=== PATIENT | female | born 1965 | race Caucasian/White ===

== ENCOUNTER 2018-08-22 13:16 | Emergency (ER) | END 2018-08-22 17:28 | disposition home or self-care (01) ==

== ENCOUNTER 2018-10-10 22:57 | Emergency (ER) | payer OTHER ==
[~2018-10-10] VITALS: Wt 86.4 kg
[~2018-10-10 22:57] MED LIST: IBUP-1542 PO; OLME1TAB29 PO
--- NOTE | 2018-10-11 00:30 | ERD ---
ER Documentation Chief Complaint Chief Complaint htn at home, c/o headache HPI 53-year-old woman presents with headache and elevated blood pressure, she has a long history of episodic hypertension but denies using medications regularly, she has no personal antihypertensive prescriptions but did use her 's lisinopril today prior to arrival. She denies chest pain or shortness of breath, no slurred speech, no weakness in her arms or legs, no difficulty ambulating. ROS All systems reviewed and are negative except as per history of present illness. Medications Home Meds Active Scripts Hydrochlorothiazide* (Hydrochlorothiazide*) 25 Mg Tab, 25 MG PO DAILY, #30 TAB Prov:CARLOTA BERKOWITZ MD 10/11/18 Naproxen* (Naprosyn*) 500 Mg Tablet, 500 MG PO BID PRN for PAIN AND/OR INFLAMMATION, #30 TAB Prov:CARLOTA BERKOWITZ MD 10/11/18 Ibuprofen* (Motrin*) 600 Mg Tab, 600 MG PO Q6H PRN for PAIN AND OR ELEVATED TEMP, #30 TAB Prov:HECTOR HOPPER MD 08/22/18 Reported Medications Aypiqxwbjz-Ewgdlbqlip-EQIJ (Tribenzor) 20-5-12.5 Mg Tablet, 1 TAB PO NEEDED, TAB THIS IS SOME ONE ELS MEDICATION 08/22/18 Allergies Allergies: Coded Allergies: No Known Allergy (Unverified , 08/22/18) PMhx/Soc Hypertension? History of Surgery: No Anesthesia Reaction: No Hx Neurological Disorder: No Hx Respiratory Disorders: No Hx Cardiac Disorders: Yes (HTN NON-COMPLIANT ) Hx Psychiatric Problems: No Hx Miscellaneous Medical Probl: No Hx Alcohol Use: Yes (occassionally/socially 08/21/18) Hx Substance Use: No Hx Tobacco Use: No FmHx Family History: No diabetes Physical Exam Vitals Vital Signs Date Temp Pulse Resp B/P (MAP) Pulse Ox O2 O2 Flow FiO2 Time Delivery Rate 10/11/18 98.1 74 16 170/91 97 Room Air 03:30 (117) 10/10/18 197/109 99 23:45 (138) 10/10/18 98.0 77 18 212/117 96 23:06 (148) Physical Exam GENERAL: Well-developed, well-nourished, well-hydrated, in no apparent distress, looks nontoxic in appearance HEENT: Moist mucous membranes, pink conjunctiva, no cervical spine tenderness or step-off deformities, no goiter, no jaundice or icterus, extraocular movements intact without pain. No submandibular induration, and no pharyngeal erythema NEURO: Alert and oriented 3, cranial nerves II through XII intact bilaterally, pupils equal round reactive to light, no focal deficits or facial asymmetry, sensation intact distally Strength 5/5 in upper and lower extremities bilaterally CARDIAC: Regular rate and rhythm, no murmurs rubs or gallops LUNGS: Clear bilaterally no wheezing crackles or stridor ABDOMEN: Soft nontender, no guarding, no rigidity, no rebound, no psoas sign no obturator sign. Normoactive bowel sounds SKIN: Warm and dry to touch, no abrasions, contusions, or hematomas, no lacerations, no ecchymosis, no target lesions, and without ulcers EXTREMITIES: No clubbing cyanosis or edema, calves are bilaterally symmetrical, no Homans sign, no popliteal cord sign. Distal pulses equal and bilateral PSYCH: Normal affect without agitation or irritability Result Diagram: 10/11/1815410/11/18 0155 Results 24 hrs Laboratory Tests Test 10/11/18 01:55 White Blood Count 8.6 10^3/ul Red Blood Count 4.59 10^6/ul Hemoglobin 13.7 g/dl Hematocrit 41.9 % Mean Corpuscular Volume 91.3 fl Mean Corpuscular Hemoglobin 29.8 pg Mean Corpuscular Hemoglobin Concent 32.7 g/dl Red Cell Distribution Width 13.3 % Platelet Count 179 10^3/UL Mean Platelet Volume 11.4 fl Immature Granulocytes % 0.300 % Neutrophils % 59.3 % Lymphocytes % 30.2 % Monocytes % 6.6 % Eosinophils % 2.9 % Basophils % 0.7 % Nucleated Red Blood Cells % 0.0 /100WBC Immature Granulocytes # 0.030 10^3/ul Neutrophils # 5.1 10^3/ul Lymphocytes # 2.6 10^3/ul Monocytes # 0.6 10^3/ul Eosinophils # 0.3 10^3/ul Basophils # 0.1 10^3/ul Nucleated Red Blood Cells # 0.0 10^3/ul Urine Color YELLOW Urine Clarity CLEAR Urine pH 5.0 Urine Specific Alexander 1.021 Urine Ketones NEGATIVE mg/dL Urine Nitrite NEGATIVE mg/dL Urine Bilirubin NEGATIVE mg/dL Urine Urobilinogen 1+ mg/dL Urine Leukocyte Esterase TRACE Hernandez/ul Urine Microscopic RBC 1 /HPF Urine Microscopic WBC 3 /HPF Urine Hemoglobin NEGATIVE mg/dL Urine Glucose NEGATIVE mg/dL Urine Total Protein NEGATIVE mg/dl Sodium Level 142 mmol/L Potassium Level 3.7 mmol/L Chloride Level 104 mmol/L Carbon Dioxide Level 30 mmol/L Anion Gap 8 Blood Urea Nitrogen 15 mg/dl Creatinine 0.81 mg/dl Est Glomerular Filtrat Rate mL/min > 60 mL/min Glucose Level 116 mg/dl Calcium Level 9.3 mg/dl Total Bilirubin 0.2 mg/dl Direct Bilirubin 0.00 mg/dl Indirect Bilirubin 0.2 mg/dl Aspartate Amino Transf (AST/SGOT) 31 IU/L Alanine Aminotransferase (ALT/SGPT) 35 IU/L Alkaline Phosphatase 103 IU/L Troponin I < 0.012 ng/ml Total Protein 8.0 g/dl Albumin 4.5 g/dl Globulin 3.50 g/dl Albumin/Globulin Ratio 1.28 Lipase 248 U/L Current Medications Medications Dose Sig/Saran Start Time Status Last (Trade) Ordered Route PRN Stop Time Admin Dose Reason Admin Sodium 500 ml @ Q1H STAT 10/11/18 DC 10/11/18 Chloride 500 mls/hr IV 00:56 02:22 10/11/18 01:55 25 mg ONCE ONCE 10/11/18 DC 10/11/18 Hydrochloroth PO 01:00 02:01 iazide 10/11/18 01:01 (Hydrochlorot hiazide) Procedures/MDM IV line was established patient was placed on cafeteria monitor rhythm strip revealed a sinus rhythm at about 80 bpm with upright P and T waves. Patient was afebrile EKG performed, read by me: Normal sinus rhythm at 66 bpm, normal axis, narrow QRS complex, no concerning ST elevations or depressions noted. I administered 500 cc normal saline IV x1 and hydrochlorothiazide 25 mg p.o. x1. CBC and electrolytes are normal, liver function tests were normal, troponin was negative, urinalysis was negative for infection Blood pressure fell and symptoms resolved. Differential diagnoses considered, included but not limited to acute coronary syndrome, pulmonary embolism, aortic dissection, abdominal aortic aneurysm, sepsis, stroke, meningitis, encephalitis, pneumonia, appendicitis, cholecystitis, bowel obstruction, pyelonephritis, nephrolithiasis, cystitis, as well as metabolic, hematologic, and electrolyte abnormalities. As well as abscess, cellulitis, fractures, and dislocations. Patient feels much better at this time, and vital signs are normal, symptoms have improved. I did give strict instructions to return to the ED if symptoms continue or worsen, patient will otherwise follow-up with primary care physician. Patient understood instructions and agreed to plan. Disclaimer: Inadvertent spelling and grammatical errors are likely due to EHR/dictation software use and do not reflect on the overall quality of patient care. Also, please note that the electronic time recorded on this note does not necessarily reflect the actual time of the patient encounter. Departure Diagnosis: Primary Impression: Hypertension Hypertension type: essential hypertension Qualified Codes: I10 - Essential (primary) hypertension Additional Impression: Cephalgia Headache type: tension-type Headache chronicity pattern: acute headache Intractability: not intractable Qualified Codes: G44.209 - Tension-type headache, unspecified, not intractable Condition: CARLOTA Raygoza MD Oct 11, 2018 00:30
[2018-10-11] MEDS ORDERED: SOD CHLORIDE 0.9% 500 ML IV STA (00:56)
[2018-10-11] MEDS ORDERED: HYDROCHLOROTHIAZIDE 25 MG TAB PO ONE (01:00)
[2018-10-11] MEDS ORDERED: HYDR25TA6 PO (02:56)
[2018-10-11] MEDS ORDERED: NAPR-985 PO (02:56)
[2018-10-11 03:30] VITALS: BP 170/91; PULSE 74; RESP 16
== END 2018-10-11 03:35 | disposition home or self-care (01) ==
LOC: E/R 22:57
DX: I10 Essential (primary) hypertension (principal); R40.2142 Coma scale, eyes open, spontaneous, at arrival to emergency department; R40.2362 Coma scale, best motor response, obeys commands, at arrival to emergency department; R40.2252 Coma scale, best verbal response, oriented, at arrival to emergency department; G44.209 Tension-type headache, unspecified, not intractable
CPT/HCPCS: 36415; 80053; 81001; 83690; 84484; 85025; 96360; J7040; Z7502; Z7610; 93005

== ENCOUNTER 2019-05-13 22:07 | Emergency (ER) | payer OTHER ==
[~2019-05-13] VITALS: Ht 157.5 cm; Wt 73.2 kg
[~2019-05-13 22:07] MED LIST changes: +CEPH-443 PO; +HYDR-3672 PO; +HYDR25TA6 PO; +NAPR-985 PO; +SULF1TAB31 PO
[2019-05-13 22:09] VITALS: Ht 157.5 cm; Wt 73.2 kg
[2019-05-14] MEDS ORDERED: hydrALAzine 20 MG INJ IV ONE
[2019-05-14] MEDS ORDERED: morphine 2 MG INJ IV STA (01:20)
[2019-05-14] MEDS ORDERED: ONDANSETRON 4 MG INJ IV STA (01:20)
[2019-05-14 02:14] VITALS: BP 157/92; PULSE 86; RESP 23
== END 2019-05-14 02:14 | disposition home or self-care (01) ==
LOC: E/R 22:07
DX: I10 Essential (primary) hypertension (principal)
CPT/HCPCS: 71045; 80053; 81001; 83690; 84484; 85025; 87040; 93005; J0360; J2270; J2405; 36415; 96374; 96375